=== PATIENT | female | born 1945 | race African-American/Black ===

== ENCOUNTER 2024-12-21 13:35 | Emergency (ER) | payer OTHER ==
[2024-12-21 13:43] VITALS: BP 103/71; PULSE 75; RESP 20; TEMP 98.4; BMI 20.9
[2024-12-21] MEDS ORDERED: FLUORESCEIN NA 1 EA STRIP ONE (14:41)
[2024-12-21] MEDS ORDERED: TETRACAINE 0.5% OPHTH SOLN 2 ML BOTTLE ONE (14:41)
[2024-12-21] MEDS: FLUORESCEIN NA 1 EA STRIP OS ONE (14:52)
[2024-12-21] MEDS: TETRACAINE 0.5% HCL 0.6ML DROPPER.BOTTLE OS ONE (14:52)
== END 2024-12-21 15:11 | disposition home or self-care (01) ==
LOC: JERFT 13:35
DX: H57.89 Other specified disorders of eye and adnexa (principal)
CPT/HCPCS: 99283-25